=== PATIENT | male | born 1945 | race Caucasian/White ===

== ENCOUNTER → 2024-12-25 14:27 | Outpatient (REF) | payer MEDICARE, SELFPAY ==
[2024-12-26 21:27] LABS: Hepatitis C Antibody Negative (Negative)
== END ==
LOC: CLAB 14:27
DX: R73.01 Impaired fasting glucose (principal); Z11.59 Encounter for screening for other viral diseases
CPT/HCPCS: 86803

== ENCOUNTER → 2024-12-27 13:19 | Outpatient (REF) | payer MEDICARE, SELFPAY ==
[2024-12-27 16:14] LABS: Hepatitis C Antibody Negative (Negative)
[2024-12-28 10:16] LABS: Glycohemoglobin (HgbA1c) 6.3 % (4.0-5.6)
== END ==
LOC: HWLAB 13:19
DX: R73.01 Impaired fasting glucose (principal); Z11.59 Encounter for screening for other viral diseases
CPT/HCPCS: 36415; 83036; 86803

== ENCOUNTER → 2025-01-13 14:05 | Outpatient (REF) | payer MEDICARE, SELFPAY | LOC: EMG 14:05 | DX: R20.2 Paresthesia of skin (principal); M54.16 Radiculopathy, lumbar region | CPT/HCPCS: 95886; 95910 ==

== ENCOUNTER → 2025-04-21 07:43 | Outpatient (REF) | payer MEDICARE, SELFPAY | LOC: DHSLP 07:43 | PROVIDERS: ATTENDING PHYSICIAN Internal Medicine Critical Care Medicine | DX: G47.33 Obstructive sleep apnea (adult) (pediatric) (principal); R09.02 Hypoxemia | CPT/HCPCS: 95806 ==